=== PATIENT | male | born 1990 | race Caucasian/White ===

== ENCOUNTER 2018-03-05 05:52 | Emergency (ER) | payer SELFPAY ==
[~2018-03-05] VITALS: Ht 182.9 cm; Wt 86.2 kg
[2018-03-05 06:04] VITALS: BP 140/90
[2018-03-05 06:25] LABS: BASO # 0.1 x10^3/uL (0.0-0.2); BASO % 1 % (0-3); EOS # 0.3 x10^3/uL (0.0-0.7); EOS % 4 % (0-3); HEMATOCRIT 41.3 % (39.0-53.0); HEMOGLOBIN 14.1 g/dL (13.0-17.5); LYMPH # 2.2 x10^3/uL (1.0-4.8); LYMPH % 26 % (24-48); MEAN CORPUSCULAR HEMOGLOBIN 30 pg (25-35); MEAN CORPUSCULAR HGB CONC 34 g/dL (31-37); MEAN CORPUSCULAR VOLUME 88 fL (79-100); MONO # 0.7 x10^3/uL (0.0-1.1); MONO % 8 % (0-9); NEUT # 5.3 x10^3uL (1.8-7.7); NEUT % 62 % (31-73); PLATELET COUNT 229 x10^3/uL (140-400); RED BLOOD COUNT 4.68 x10^6/uL (4.30-5.70); RED CELL DISTRIBUTION WIDTH 13.1 % (11.5-14.5); WHITE BLOOD COUNT 8.5 x10^3/uL (4.0-11.0)
[2018-03-05 06:34] LABS: CREATININE 0.9 mg/dL (0.7-1.3)
[2018-03-05 06:40] LABS: ALBUMIN 3.6 g/dL (3.4-5.0); ALBUMIN/GLOBULIN RATIO 1.1 (1.0-1.7); TOTAL BILIRUBIN 0.1 mg/dL (0.2-1.0); TOTAL PROTEIN 6.9 g/dL (6.4-8.2)
--- NOTE | 2018-03-05 06:50 | RAD ---
INDICATION : RUQ PAIN HX OF GB STONES COMPARISON: None TECHNIQUE: Multiple ultrasound images obtained through the abdomen in grayscale and color. FINDINGS: Liver: Echogenicity is grossly unremarkable. Gallbladder: Debris is seen within the gallbladder with suspected stones and sludge. The bladder wall measures up to about 4 mm. Gallbladder does appear somewhat distended up to approximately 107 x 31 mm. IVC: Partially distended at level of liver. Common Bile Duct: 5 to 6 mm. Pancreas: Not well seen. Right Kidney: No hydronephrosis. IMPRESSION: 1. Gallstones and sludge is visualized with borderline wall thickening and borderline common bile duct size. The patient does have some pain to tenderness in the region. Given these borderline findings as well as the presence of gallstones cholecystitis is not excluded on this examination but given that these findings are borderline the diagnosis is not definitive. If further clarification is desired radiographically nuclear hepatic biliary scan could further evaluate. Additionally if there is clinical concern for biliary obstruction MRCP could further evaluate. Electronically signed by: Angelito Holt MD (03/05/2018 6:47 AM) [id number]
[2018-03-05] MEDS ORDERED: KETOROLAC 15 MG/ML VIAL. IV ONE (07:00)
[2018-03-05] MEDS ORDERED: FAMOTIDINE 20 MG/2 ML VIAL IVP ONE (07:00)
[2018-03-05] MEDS ORDERED: ONDA4TAB7 PO (08:11)
--- NOTE | 2018-03-05 11:47 | PHYS DOC ---
Past Medical History Past Medical History: No Pertinent History Past Surgical History: Tonsillectomy Alcohol Use: None Drug Use: Methamphetamine Adult General Chief Complaint Chief Complaint: ABDOMINAL PAIN HPI HPI Patient is a 27 year old male with history of methamphetamine addiction who is currently residing at inpatient rehabilitation who presents with chronic recurrent right upper quadrant pain. States symptoms are symptoms similar to his prior symptoms and that he is been diagnosed with biliary colic. Right upper quadrant pain is described as moderate to severe radiates to right shoulder. It is not social nausea vomiting. Symptoms are worse after feeding. No diarrhea or bloody stools. No history of gastritis, peptic ulcer disease or melena. Patient was last seen at [facility] for the same. States lab performed yesterday patient was instructed to follow-up with his local primary care physician. No other acute symptoms or complaints.[] Review of Systems Review of Systems ROS as per HPI All other systems were reviewed and found to be within normal limits, except as documented in this note. Current Medications Current Medications Current Medications Medications (Trade) Dose Ordered Sig/Anju Start Time Stop Time Status Last Admin Dose Admin Famotidine (Pepcid Vial) 20 mg 1X ONCE 03/05/18 07:00 03/05/18 07:01 DC 03/05/18 07:05 20 MG Ketorolac Tromethamine (Toradol 15mg Vial) 15 mg 1X ONCE 03/05/18 07:00 03/05/18 07:01 DC 03/05/18 07:08 15 MG Allergies Allergies Allergies Coded Allergies Type Severity Reaction Last Updated Verified vancomycin Allergy Unknown 03/05/18 Yes Physical Exam Physical Exam Constitutional: Well developed, well nourished, no acute distress, non-toxic appearance. [] HENT: Normocephalic, atraumatic, bilateral external ears normal, oropharynx moist, nose normal. [] Eyes: PERRLA, EOMI, conjunctiva normal. [] Neck: Normal range of motion, no tenderness. [] Cardiovascular:Heart rate regular rhythm, no murmur.[] Lungs & Thorax: Bilateral breath sounds clear to auscultation .[] Abdomen: Bowel sounds normal, soft, right upper quadrant pain, tenderness to palpation. [] Skin: Warm, dry, no erythema. [] Back: No tenderness. [] Extremities: No tenderness. [] Neurologic: Alert and oriented X 3, normal motor function, normal sensory function, no focal deficits noted. [] Psychologic: Affect normal, judgement normal, mood normal. [] Current Patient Data Vital Signs Vital Signs Date Time Temp Pulse Resp B/P (MAP) Pulse Ox O2 Delivery O2 Flow Rate FiO2 03/05/18 06:04 97.9 90 18 140/90 (107) 100 Room Air 97.9 Lab Values Laboratory Tests Test 03/05/18 06:12 White Blood Count 8.5 x10^3/uL (4.0-11.0) Red Blood Count 4.68 x10^6/uL (4.30-5.70) Hemoglobin 14.1 g/dL (13.0-17.5) Hematocrit 41.3 % (39.0-53.0) Mean Corpuscular Volume 88 fL (79-100) Mean Corpuscular Hemoglobin 30 pg (25-35) Mean Corpuscular Hemoglobin Concent 34 g/dL (31-37) Red Cell Distribution Width 13.1 % (11.5-14.5) Platelet Count 229 x10^3/uL (140-400) Neutrophils (%) (Auto) 62 % (31-73) Lymphocytes (%) (Auto) 26 % (24-48) Monocytes (%) (Auto) 8 % (0-9) Eosinophils (%) (Auto) 4 % (0-3) H Basophils (%) (Auto) 1 % (0-3) Neutrophils # (Auto) 5.3 x10^3uL (1.8-7.7) Lymphocytes # (Auto) 2.2 x10^3/uL (1.0-4.8) Monocytes # (Auto) 0.7 x10^3/uL (0.0-1.1) Eosinophils # (Auto) 0.3 x10^3/uL (0.0-0.7) Basophils # (Auto) 0.1 x10^3/uL (0.0-0.2) Sodium Level 141 mmol/L (136-145) Potassium Level 4.0 mmol/L (3.5-5.1) Chloride Level 105 mmol/L (98-107) Carbon Dioxide Level 29 mmol/L (21-32) Anion Gap 7 (6-14) Blood Urea Nitrogen 5 mg/dL (8-26) L Creatinine 0.9 mg/dL (0.7-1.3) Estimated GFR (Cockcroft-Gault) 102.0 BUN/Creatinine Ratio 6 (6-20) Glucose Level 96 mg/dL (70-99) Calcium Level 9.0 mg/dL (8.5-10.1) Total Bilirubin 0.1 mg/dL (0.2-1.0) L Aspartate Amino Transferase (AST) 16 U/L (15-37) Alanine Aminotransferase (ALT) 33 U/L (16-63) Alkaline Phosphatase 82 U/L (46-116) Total Protein 6.9 g/dL (6.4-8.2) Albumin 3.6 g/dL (3.4-5.0) Albumin/Globulin Ratio 1.1 (1.0-1.7) Lipase 111 U/L (73-393) Laboratory Tests 03/05/18 06:12 Laboratory Tests 03/05/18 06:12 EKG EKG [] Radiology/Procedures Radiology/Procedures US RUQ; enlarged gallbladder with multiple stone/sludge the neck, wall thickness dilated CBD, upper quadrant quadrant tenderness[] Course & Med Decision Making Course & Med Decision Making Pertinent Labs and Imaging studies reviewed. (See chart for details) [Chronic recurrent quadrant pain, tenderness. Ultrasound negative for cholecystitis. Symptoms improved with treatment. Patient sleeping at time of departure.] Dragon Disclaimer Dragon Disclaimer This electronic medical record was generated, in whole or in part, using a voice recognition dictation system. Departure Departure Impression: Primary Impression: Recurrent biliary colic Additional Impression: Right upper quadrant pain Disposition: 01 HOME, SELF-CARE Condition: GOOD Referrals: NO PCP (PCP) Patient Instructions: Abdominal Pain (Nonspecific), Biliary Colic Additional Instructions: Please avoid fatty and spicy foods. Take Tylenol as needed for pain and Zofran as needed for nausea. Follow-up with Dr. Cherry on-call for general surgery in the office suite. Return to the closest ED if new or worsening symptoms. Scripts Ondansetron Hcl (ZOFRAN) 4 Mg Tablet 1 TAB PO Q6HRS, #10 TAB 0 Refills Prov: ERIKA ALCARAZ DO 03/05/18 Problem Qualifiers ERIKA ALCARAZ DO Mar 05, 2018 11:47
== END 2018-03-05 08:50 | disposition home or self-care (01) ==
LOC: ER 05:52
DX: K80.50 Calculus of bile duct without cholangitis or cholecystitis without obstruction (principal); F15.20 Other stimulant dependence, uncomplicated; Z90.89 Acquired absence of other organs; Z88.1 Allergy status to other antibiotic agents
CPT/HCPCS: 36415; 76705; 80053; 83690; 85025; 96374; 96375; 99285; J1885; J3490